=== PATIENT | male | born 1930 | race Caucasian/White ===

== ENCOUNTER → 2016-10-20 | Outpatient (CLI) | payer MEDICARE, BC ==
[~2016-10-20] MED LIST: ASPI1TAB69 PO; GLUC1TAB19; MULT1TAB84 PO; NEXI40CA PO; ROSU20 PO
--- NOTE | 2016-10-21 11:31 | RSPPFT ---
DATE OF PROCEDURE: 10/20/16 COMMENTS: Spirometry shows FVC of 4.5 at 120% of predicted, FEV1 of 2.7 at 117%, FEV1/FVC ratio is normal. Flow is decreased at FEF 25, FEF 50, FEF 75 and FEF 25-75. There is no response after bronchodilator treatment. Lung volumes show residual volume is increased. TLC is increased. Diffusion capacity is increased. Flow volume loops indicate terminal airways obstruction. IMPRESSION: 1. Mild small airways obstructive lung disease. 2. No response after bronchodilator treatment 3. Lung volumes show hyperinflation. 4. Diffusion capacity is increased.
== END ==
LOC: HRSP 12:03
PROVIDERS: ATTEND Internal Medicine Hematology
DX: C34.12 Malignant neoplasm of upper lobe, left bronchus or lung (principal)
CPT/HCPCS: 94060; 94726; 94729